=== PATIENT | male | born 2000 ===

== ENCOUNTER 2020-04-16 16:57 | Emergency (ER) | payer BC, OTHER ==
[~2020-04-16] VITALS: Ht 172.2 cm; Wt 74.8 kg
--- OUTSIDE RECORDS SUMMARY | 2020-04-16 17:03 | XMS REPORT ---
Author Author Fco Rothman Organization [facility] Address [address] [place] [place] [address] Care Team Providers Care Seo Team Lead Name Role Phone Shahbaz Rothman Unavailable PROBLEMS Type Condition ICD9-CM Code [id number] Code Onset Dates Condition S tatus SNOMED Code Problem Acne vulgaris L70.0 Active 221668 00 ALLERGIES Substance Reaction Event Type Date Status N.K.D.A. Unknown Non Drug Allergy Dec, Unknown SOCIAL HISTORY No smoking Hx information available PLAN OF CARE Activity Details Follow Up 2 Months Reason: VITAL SIGNS Heart Rate 71 /min 2017-01-14 Height 5 ft 8 in in 2017-01-14 Weight 150 lbs 2017-01-14 BMI 22.80 kg/m2 2017-01-14 Blood pressure systolic 126 mm Hg 2017-01-14 Blood pressure diastolic 74 mm Hg 2017-01-14 MEDICATIONS Medication Instructions Dosage Frequency Start Date End Date Duration S tatus Epiduo Forte 0.3-2.5 % Externally Once a day 1 application to [facility] area 24h Dec, Active RESULTS No Results PROCEDURES Procedure Date Ordered Related Diagnosis Body Site Office Visit New Pt Level 3 January 14, 2017 IMMUNIZATIONS No Known Immunizations
[2020-04-16] MEDS ORDERED: RX-AMOX/CLAV. (AUGMENTIN) 500MG TAB PPK#2 PO STA (17:12)
[2020-04-16] MEDS ORDERED: LIDOCAINE/EPI 2% 1:100,00 (XYLOCAINE) 20 ML VIAL INJ ONE (17:15)
--- NOTE | 2020-04-16 17:36 | ED Lower Extremity ---
General Chief Complaint: Laceration Stated Complaint: R KNEE LAC Nursing Triage Note: Pt to ED with approximate 2 cm laceration to R knee. Pt reports wrestling in the grass and is unsure how laceration happened. Bleeding controlled with dressing in place. Source: patient Exam Limitations: no limitations History of Present Illness Date Seen by Provider: Apr 16, 2020 Time Seen by Provider: 17:31 Initial Comments To ER with a laceration to the medial aspect of the right knee, was wrestling with a friend, something in the front yard cut him. Not sure what it was. Tetanus is up-to-date. States he's had "a few beers" today. Onset: just prior to arrival Severity: moderate Pain/Injury Location: right knee Method of Injury: fell Allergies and Home Medications Allergies Coded Allergies: No Known Drug Allergies (Unverified , 04/16/20) Patient Home Medication List Home Medication List Reviewed: Yes Review of Systems Constitutional: see HPI EENTM: see HPI Respiratory: no symptoms reported Cardiovascular: no symptoms reported Genitourinary: no symptoms reported Musculoskeletal: see HPI Skin: no symptoms reported Psychiatric/Neurological: No Symptoms Reported Past Lqxipva-Fxwcny-Bncqov Hx Patient Social History Alcohol Use: Occasionally Uses Alcohol Beverage of Choice: Beer Recreational Drug Use: No Smoking Status: Current Someday Smoker Type Used: Cigarettes, Electronic/Vapor 2nd Hand Smoke Exposure: Yes Recent Foreign Travel: No Contact w/Someone Who Travel: No Recent Infectious Disease Expo: No Recent Hopitalizations: No Ebola Symptoms: Denies Symptoms Listed Seasonal Allergies Seasonal Allergies: Yes Past Medical History Surgeries: Yes (R knee) Orthopedic, Tonsillectomy Respiratory: No Cardiac: No Neurological: No Genitourinary: No Gastrointestinal: No Musculoskeletal: No Endocrine: No HEENT: No Cancer: No Psychosocial: No Integumentary: No Blood Disorders: No Adverse Reaction/Blood Tranf: No Physical Exam Vital Signs Vital Signs - First Documented 04/16/20 16:59 Temp 37.2 Pulse 93 Resp 22 B/P (MAP) 156/68 Pulse Ox 97 O2 Delivery Room Air Capillary Refill : Less Than 3 Seconds Height, Weight, BMI Height: '" Weight: lbs. oz. kg; 25.00 BMI Method: General Appearance: WD/WN, no apparent distress HEENT: PERRL/EOMI, normal ENT inspection Respiratory: no respiratory distress, no accessory muscle use Hips: bilateral hip non-tender, bilateral hip normal inspection, bilateral hip normal range of motion Legs: bilateral leg non-tender, bilateral leg normal inspection, bilateral leg normal range of motion Knees: right knee other (there is a 2 cm horizontally oriented laceration with depth does obtain his tissue to the medial aspect of the patellar tendon on the right knee. The patellar tendon is intact. There is a little bit of brisk bleeding from a superficial venule or arteriole. This laceration is about 2 cm inferior to the joint line. After anesthetizing with 4 mL of lidocaine with epinephrine this was irrigated with 1 bottle (500 mL) of saline with chlorhexidine. Irrigation was done using a 60 cc syringe. Wound was then closed loosely with 6 simple interrupted sutures. 2 sutures were more tightly closed over the bleeding arteriole.) Neurologic/Psychiatric: alert, normal mood/affect, oriented x 3 Skin: normal color, warm/dry Alert and oriented, no obvious sign of intoxication. Speech is clear. Progress/Results/Core Measures Results/Orders My Orders Orders - RYAN HERNANDEZ APRN Rx-Amoxicillin/Clav Tab (Rx-Augmentin Ta (04/16/20 17:12) Lidocaine/Epi 2% 1:100,000 (Xylocaine/Ep (04/16/20 17:15) Medications Given in ED Current Medications Medications Dose Ordered Sig/Saundra Route Start Time Stop Time Status Last Admin Dose Admin Lidocaine/ Epinephrine 20 ml ONCE ONCE INJ 04/16/20 17:15 04/16/20 17:16 DC 04/16/20 17:00 4 ML Vital Signs/I&O 04/16/20 16:59 Temp 37.2 Pulse 93 Resp 22 B/P (MAP) 156/68 Pulse Ox 97 O2 Delivery Room Air Departure Communication (Admissions) Wound was probed with a sterile Q-tip, seems to stop inferior to the joint line and I do not suspect penetration of the joint capsule. However I did discuss with him the need for close monitoring for any redness swelling or infectious signs which would warrant prompt follow-up. He is from [place] and will be returning there tomorrow. Impression Primary Impression: Laceration of right knee Qualified Codes: S81.011A - Laceration without foreign body, right knee, initial encounter Disposition: HOME, SELF-CARE Condition: Stable Departure-Patient Inst. Decision time for Depature: 17:36 Referrals: NO,LOCAL PHYSICIAN (PCP/Family) Primary Care Physician Patient Instructions: Laceration Repair With Stitches (DC) Add. Discharge Instructions: You can shower letting water run over this starting tonight. However do not soak this in water such as a hot tub bath tub or swimming pool until the stitches come out. Stitches should be removed in about 10-12 days. Most urgent care's emergency room's Or family physicians are capable of doing this. It's important to keep a close eye on this for any sign of infection given its close proximity to the joint. If he notices any redness, increasing swelling, increasing pain, fevers these would warrant being evaluated very soon after noticing these symptoms. Change the dressing tonight, it would be a good idea to keep a Band- Aid over this or some sort of dressing over this. Dressing over this. Dressing over this. All discharge instructions reviewed with patient and/or family. Voiced understanding. Scripts Amoxicillin/Potassium Clav (Augmentin 875-125 Tablet) 1 Each Tablet 1 EACH PO BID, #8 TAB 0 Refills Prov: RYAN HERNANDEZ APRN 04/16/20 RYAN HERNANDEZ APRN Apr 16, 2020 17:36
[2020-04-16] MEDS ORDERED: AMOX-358 PO (17:40)
--- NOTE | 2020-04-18 13:38 | NUR ---
PT'S MOTHER CALLED BACK ET STATES HE LEFT HIS SCRIPT IN [employer] AND ASKED FOR IT TO BE CALLED INTO A [facility] AT [place]. MANOHARIN PRESCRIBED WHICH I CALLED IN FOR HIM.
== END 2020-04-16 17:51 | disposition home or self-care (01) ==
LOC: ER 16:59
DX: S81.011A Laceration without foreign body, right knee, initial encounter (principal); F17.210 Nicotine dependence, cigarettes, uncomplicated; F17.290 Nicotine dependence, other tobacco product, uncomplicated; W26.8XXA Contact with other sharp object(s), not elsewhere classified, initial encounter; W19.XXXA Unspecified fall, initial encounter; Y93.72 Activity, wrestling